=== PATIENT | female | born 1995 ===

== ENCOUNTER 2023-02-13 15:46 | Inpatient (IN) | payer OTHER, SELFPAY ==
[2023-02-13] VITALS (20 sets, daily range): BP systolic 97–125; BP diastolic 55–68; PULSE 65–95; RESP 16–20; TEMP 36.6–37; O2SAT 98; BMI 28.2
[2023-02-13 11:39] LABS: Amnisure Rom* POSITIVE
[2023-02-13 15:38] LABS: Amnisure Rom* POSITIVE
--- NOTE | 2023-02-13 17:08 | PM.OBHPLI ---
OB - H&P: HPI Labor/Induction History of Present Illness Time Seen by Provider: 16:45 Date Seen: 02/13/23 Chief Complaint: The patient is a 27 year old 2 para 1 at 38 4/7 weeks gestation by 6wk US not consistent with LMP, who presents with bloody show/leaking fluid. Chief complaint: Maternity : 2 Para: 1 Narrative: Barbra is a 27 year old 2 para 1 at 38 4/7 weeks gestation by 6wk US not consistent with LMP, who presents with bloody show/leaking fluid. pt reports around 9:30 am went to bathroom and noticed bloody mucous in underwear. Went to bathroom and then shortly later noticed ?leaking fluid as underwear was wet. clear fluid. Not think went through to pants. Came to Center around 11am and had +amniosure with slight bloody mucous noted. Then had less than quarter size blood noted per nursing. No nirmal bleeding otherwise. Pt reports has had 'tightening' last few days and that has been same. no increased ctxs noted. cervix checked on presentation and was 4cm. Plan was to monitor for couple hours. No increase in ctxs and cervix unchanged. Pt notes pantyliner slightly wet at times. no obvious signs of rupture otherwise. Nursing felt amniotic sac on check. Amniosure repeated and positive. Nursing reviewed rec to start pitocin and pt wanted to try rupturing first per nursing. Currently pt reports intermittent tightening feeling same except at times also notices some back pain with it. No recent illness. No headaches. History of Present Dating criteria: based on 1st trimester US only care: good care Ultrasounds: normal mid trimester US Medical complications: none Labs Blood type: O (+) positive Rubella: immune RPR/VDLR: nonreactive GBS status: negative HBsAG: negative Meds Home Medications and Allergies Home Medications Medication Instructions Recorded Confirmed Type Iron 1 tab PO DAILY 02/13/23 02/13/23 History + DHA 1 tab PO DAILY 02/13/23 02/13/23 History Allergies Allergy/AdvReac Type Severity Reaction Status Date / Time Shrimp Allergy Intermediate Hives Uncoded 02/13/23 10:55 OB - H&P: Exam Physical Exam: Vital signs: Temp Pulse Resp BP Pulse Ox 98.3 F 74 16 113/56 L 98 02/13/23 15:03 12/11/23 16:40 02/13/23 15:03 02/13/23 16:40 02/13/23 10:58 Constitutional: Constitutional: no acute distress and cooperative Routine HEENT Exam: Head: Present normal inspection Eye: Present normal appearance ENT: Present mucous membranes moist Routine Respiratory Exam: Respiratory: Present CTA bilaterally Routine Cardiovascular Exam: Cardiovascular: RRR Detailed Labor and Delivery Exam: Patient Gravid: Yes Dilation (cm): 4 Effacement (%): 70 Cervix position: posterior Consistency: soft Fetus (Single): Station: -2 Amniotic Membrane Status: AROM (at 1653 with clear fluid) Amniotic Membrane Fluid Description: Clear Heart Rate Baseline: 130 Monitor Accelerations: Present Monitor Decelerations: None 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 Still with amniotic sac palpable on exam, discussed AROM +/- pitocin and risks vs benefits especially infection risks if prolonged rupture. pt and in agreement with AROM. AROM with clear fluid. Will see how contractions progress. Discussed may need start pitocin if not clearly going into labor soon due to increased risk infection if prolonged rupture. pt and in agreement with plan (2) Term : Status: Acute
--- NOTE | 2023-02-13 19:28 | PM.OBPNL ---
Subjective Time Seen by Provider: 19:15 Date Seen: 02/13/23 Narrative: Ctxs much more intense. +rectal pressure with ctxs. 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
[2023-02-13] MEDS: OXYTOCIN 30 unit/500 ML in NS 30 UNIT/500 ML BAG 300 UNIT IVPB (20:16)
[2023-02-13] MEDS: LIDOCAINE 1 % PF 30 ML INJECTION (20:29)
--- NOTE | 2023-02-13 20:57 | W.PM.VAGD1_ITS ---
Procedure Delivery date: 02/13/23 Procedure Done: Global Procedure Details: The patient is a 27 year-old admitted on 02/13/23 at 38 Weeks, 4 Days gestation for PROM.? Cervical exam on admission was 4 cm/ 70% effaced/-2 station with membranes ruptured in vertex presentation.? Contractions were every 10 minutes.? heart rate demonstrated baseline 130 bpm with moderate variability, + accelerations, - decelerations; a category 1 tracing.? SROM/PROM occurred at 0930 at home with clear fluid. +amniosure. Monitored and did not go into labor on own and amniotic sac palpated and AROM performed at 1653 with clear fluid. ? Labor Analgesia:? Nitrous ? Pitocin:? no ? Labor onset:? 1814 ? Complete:? 2008 ? Pushing:? 2012 ? heart tones during second stage were 130's moderate variability, had decel down in 70's 1 minute prior to delivery. ? At 2016 a viable female infant delivered in vertex presentation over intact perineum via spontaneous vaginal delivery.? Infant was placed on maternal abdomen.? Cord was clamped and cut after a 60 second delay.? Nose and mouth were bulb suctioned.? weight 6#12oz.? 7 at 1 minute and 9 at 5 minutes.? Shoulder dystocia: no.? Nuchal cord: no. ? Placenta delivered spontaneously and complete at 2030 with a 3 vessel cord. ? Mother and infant were stable after delivery. ? Lacerations:? 2nd degree midline, repaired with 3-0 vicryl by standard technique after lidocaine injected for anesthesia. ? Blood loss: 50 mL. Blood loss measurement type: QBL ? Sponge and needles counts are correct. Intrapartal Events: None Delivery augmentation: rupture of membranes Delivery monitor: external FHT Route of delivery: Laceration description: Perineal - 2nd Degree Delivery repair: Vicryl Estimated blood loss (mL): 50 Anesthesia type: nitrous [place] Infant Gender: Female presentation: vertex Placental Delivery Description: Spontaneous Cord Description: 3 Vessels
[2023-02-14 04:10] VITALS: BP 94/54; PULSE 64; RESP 16; TEMP 36.9; O2SAT 97
[2023-02-14 06:26] LABS: Hemoglobin* 10.8 gm/dL (12.0-16.0)
--- NOTE | 2023-02-14 07:46 | P.OBPN_ITS ---
OB - PN:Subj Subjective Time Seen by Provider: 07:46 Date Seen: 02/14/23 Patient comments OB post-: no complaints, pain well controlled and tolerating diet Nazlin[place] infant status: Nazlini feeding status: exclusively OB - PN: Obj Exam Physical Exam: Vital signs: Temp Pulse Resp BP Pulse Ox O2 Del Method 98.4 F 64 16 94/54 L 97 Room Air 02/14/23 04:10 02/14/23 04:10 02/14/23 04:10 02/14/23 04:10 02/14/23 04:10 02/14/23 04:10 Constitutional: Constitutional: no acute distress Routine HEENT Exam: Head: Present atraumatic and normal inspection Routine Respiratory Exam: Respiratory: Present CTA bilaterally Routine Cardiovascular Exam: Cardiovascular: Present RRR, S1 and S2; Absent murmur Routine Abdominal Exam: Fundus: Present firm Routine Neurological Exam: Neurological: Present alert and oriented X3 OB - PN: Obj Data Labs Labs: Laboratory Results - last 24 hr 02/13/23 02/13/23 02/14/23 11:22 15:34 06:04 Hgb 10.8 L Membrane Rupture POSITIVE POSITIVE OB - PN: A/P Delivery Assessment and Plan (1) PROM (premature rupture of membranes): Status: Acute (2) Term : Status: Acute (3) (normal spontaneous vaginal delivery): Status: Acute Plan Doing well, continuing to work on breast feeding. Plan day: 1 Plan: routine care
[2023-02-14 08:30] VITALS: BP 102/58; PULSE 62; RESP 16; TEMP 36.9; O2SAT 97
[2023-02-14 12:14] VITALS: BP 95/58; PULSE 71; RESP 16; TEMP 36.7; O2SAT 98
[2023-02-14 16:00] VITALS: BP 99/61; PULSE 67; RESP 18; TEMP 36.9; O2SAT 99
[2023-02-14 19:54] VITALS: BP 95/58; PULSE 66; RESP 18; TEMP 36.7; O2SAT 97
[2023-02-15 00:30] VITALS: BP 98/66; PULSE 69; RESP 18; TEMP 36.8; O2SAT 98
--- NOTE | 2023-02-15 07:56 | P.DS_ITS ---
DS: Providers Provider Date Seen: 02/15/23 Date of admission: 02/13/23 15:46 Primary care physician: Jina Emmanuel DO Admitting Clinician: Nissa Melendrez DO Attending Physician on discharge: Nissa Melendrez DO Date of Discharge: 02/15/23 DS: Diagnosis Discharge Diagnosis (1) (normal spontaneous vaginal delivery): Status: Acute (2) Term : Status: Acute Exam Const: Vital Signs, click to edit/add: Vital Signs - 24 hr 02/14/23 08:30 02/14/23 12:14 02/14/23 16:00 Temperature 98.4 F 98.1 F 98.5 F Pulse Rate [Pulse Oximeter] 62 71 67 Respiratory Rate 16 16 18 Blood Pressure [Le ft Arm] 102/58 L 95/58 L 99/61 Pulse Oximetry 97 98 99 Oxygen Delivery Me thod Room Air Room Air Room Air 02/14/23 19:54 02/15/23 00:30 Temperature 98.0 F 98.3 F Pulse Rate [Pulse Oximeter] 66 69 Respiratory Rate 18 18 Blood Pressure [Le ft Arm] 95/58 L 98/66 Pulse Oximetry 97 98 Oxygen Delivery Me thod Room Air Room Air Common normals: no apparent distress GI: Common normals: Normal to inspection, nondistended, normoactive bowel sounds present Other: uterus firm at umbilicus Extremity: Other: no swelling in lower extremities OB - DS: Summary Hospital Course Hospital Course: The patient is a 27 year old G 2 P 2 at38+4 weeks gestation that was admitted to the Center on 02/13/23 for SROM. She had an uncomplicated vaginal delivery. She delivered a viable female infant. She is breast feeding. the patient has done well. Peripartum Data Infant delivery method: Vaginal complications: none [place] Infant Gender: Female Discharge Plan: Home Time Spent with Patient Time attestation: Total time spent providing and/or coordinating discharge services: Discharge Plan Discharge Disposition: Home, Self-Care Date of Admission: 02/13/23 15:46 Primary Care Provider: Jina Emmanuel Condition: Improved Anticipated Discharge Date/Time: 02/15/23 08:00 Discharge Medications: Continued + DHA 1 tab 1 tab PO DAILY Iron 1 tab PO DAILY Discharge Orders: Discharge Order (Routine); Ordered 02/15/23 Ordered By: Graciela Finch Patient Education: OB Vaginal/Breast Feeding Activity Level: No Restrictions Activity Detail: nothing per vagina x6 weeks Discharge Diet: Regular Follow Up Appointments: Jina Emmanuel DO [Primary Care Provider] - Forms: MyHealth Info Instructions Discharge Comments: Follow up with Dr. Melendrez for 6 week check
[2023-02-15 08:15] VITALS: BP 99/60; PULSE 70; RESP 16; TEMP 36.8; O2SAT 98
== END 2023-02-15 11:55 | disposition home or self-care (01) | DRG 807 ==
LOC: OB OUT 15:59 → OB 15:59
PROVIDERS: Family Medicine; Admitting Provider Family Medicine; PCP Family Medicine; Visit Provider Family Medicine
DX: O42.02 Full-term premature rupture of membranes, onset of labor within 24 hours of rupture (principal); Z37.0 Single live birth; O70.1 Second degree perineal laceration during delivery; Z3A.38 38 weeks gestation of pregnancy
CPT/HCPCS: 36415; 84112; 85018; J2001; J2371